=== PATIENT | female | born 1995 | race Caucasian/White ===

== ENCOUNTER 2021-06-07 08:14 | Emergency (ER) | payer OTHER, SELFPAY ==
[2021-06-07 08:20] VITALS: BP 129/78; PULSE 75; RESP 16; TEMP 36.6; O2SAT 100; BMI 24.9
--- NOTE | 2021-06-07 08:28 | ED.ALLEREA ---
HPI - Allergic Reaction General Chief complaint: Allergic Reaction Stated complaint: allergic reaction last night,took benedryl Time Seen by Provider: 06/07/21 08:17 History of Present Illness HPI narrative: 25-year-old female nonsmoker with noncontributory medical history presents for evaluation of possible allergic reaction last night. She states she was in her normal state of health and was eating popcorn when she noticed her upper lip started to feel swollen on the right side. She denies any pain or injury. She has no trouble swallowing. Denies any difficulty breathing or wheezing. She denies any widespread rash or hives. She has had no GI complaints such as nausea, vomiting or diarrhea. She denies any other new medications, foods or other possible exposures. She took 50 mg of Benadryl prior to coming and thinks it is improved. Related Data Previous Rx's Medication Instructions Recorded prednisone 20 mg tablet 20 mg PO DAILY #5 tab 06/07/21 Allergies Allergy/AdvReac Type Severity Reaction Status Date / Time latex [LATEX] Allergy Unknown Unverified 11/15/17 12:16 Review of Systems Review of Systems Narrative: GENERAL: See HPI HEENT: See HPI RESPIRATORY: See HPI CARDIOVASCULAR: Denies chest pain, palpitations, orthopnea, edema, GASTROINTESTINAL: Denies nausea, vomiting, abdominal pain, diarrhea, constipation, melena. : Denies dysuria, frequency, incontinence, hematuria, urinary retention. MUSCULOSKELETAL: denies weakness, joint pain, or bony pain SKIN: See HPI NEUROLOGIC: Denies weakness, headache, numbness, change in speech, confusion, seizures, incoordination. PSYCHIATRIC: No concerning psychosocial issues. 12 point review of systems is negative except for those stated above Exam Narrative Exam Narrative: GENERAL: [25] year old patient appears stated age. Well-developed patient, in mild distress. HEAD: Atraumatic. Normocephalic. EYES: Pupils equal round and reactive. Extraocular motions intact. No scleral icterus. No injection or drainage. ENT: Very minimal right-sided upper lip swelling Nose without bleeding, purulent drainage. Throat without erythema, tonsillar hypertrophy or exudate. Airway patent. NECK: Trachea midline. Non tender CARDIOVASCULAR: Regular rate and rhythm without murmurs, gallops, or rubs. RESPIRATORY: Clear to auscultation. Breath sounds equal bilaterally. No wheezes, rales, or rhonchi. GASTROINTESTINAL: Abdomen soft, non-tender, nondistended. EXTREMITIES: No edema or joint tenderness. BACK: Nontender without deformity or crepitance. No flank tenderness. NEURO: AOx3. SKIN: No rash or erythema of visible areas Initial Vital Signs Initial Vital Signs: Vital Signs Temperature 97.8 F 06/07/21 08:20 Pulse Rate 75 06/07/21 08:20 Respiratory Rate 16 06/07/21 08:20 Blood Pressure 129/78 06/07/21 08:20 Pulse Oximetry 100 06/07/21 08:20 Course Vital Signs Vital signs: Vital Signs - 8 hr 06/07/21 08:20 Temperature 97.8 F Pulse Rate 75 Respiratory Rate 16 Blood Pressure 129/78 Pulse Oximetry 100 MDM - Allergic Reaction MDM Narrative Medical decision making narrative: Patient had is very reassuring history and physical exam, improved, minimal symptoms with no trouble swallowing or breathing. No signs of anaphylaxis. Extensive return precautions given and questions answered to her apparent satisfaction. Discharge Plan Departure Patient Disposition: Home Clinical Impression: Allergic reaction Qualifiers: Encounter type: initial encounter Qualified Code(s): T78.40XA - Allergy, unspecified, initial encounter Activity Restrictions/Additional Instructions: *You have been diagnosed with [mild localized allergic reaction. No signs of anaphylaxis *What to do: * as we discussed, please continue taking antihistamines which are available [id number]. Histamine type 1 blockers include Benadryl (which can make you sleepy and should be used at night) and others such as Argelia and Claritin which are better for taking during the day. Additionally, histamine type 2 geni such as Pepcid and Zantac can be helpful as well. [ x] New medication prescriptions sent to your pharmacy: [[facility]] [ ] New medication written as a paper prescription [ ] No new medications given *Please follow up with your primary care provider in 2-3 days, call for an appointment. Let them know you were seen in the Emergency Department and that we ask that you be seen in follow up. We will electronically transmit a record of today's note if your PCP is in our system *If you do not have a primary care provider please contact the [facility] Resource line at [phone]. They will ask some questions about your medical history and help get you set up with a doctor in the community. *Return to Emergency Department if you should have any new, worsening or concerning symptoms, such as [increased swelling, difficulty swallowing or breathing, or other bothersome symptoms Prescriptions: New prednisone 20 mg tablet 20 mg PO DAILY Qty: 5 RF: 0 Referrals: Jose F Frost DO [Primary Care Provider] -
== END 2021-06-07 08:30 | disposition home or self-care (01) ==
LOC: ED 08:34
PROVIDERS: Emergency Provider Emergency Medicine; PCP Student in an Organized Health Care Education/Training Program
DX: R22.0 Localized swelling, mass and lump, head (principal); T78.40XA Allergy, unspecified, initial encounter
CPT/HCPCS: 99281

== ENCOUNTER 2022-10-26 18:17 | Emergency (ER) | payer OTHER, SELFPAY ==
[2022-10-26] VITALS (8 sets, daily range): BP systolic 118–119; BP diastolic 78–82; PULSE 78–102; RESP 20; TEMP 37.4; O2SAT 97–100; BMI 26.6
[2022-10-26 18:52] LABS: Add Manual Diff / Slide Review NO; Basophils Absolute Auto 0 /uL (0-100); Basophils Percent Auto 0.3 % (0-2); Eosinophils Absolute Auto 200 /uL (0-450); Eosinophils Percent Auto 2.4 % (2-4); Hematocrit 34.3 % (36-46); Lymphocytes Absolute Auto 3100 /uL (1100-4500); Lymphocytes Percent Auto 32.8 % (25-40); Mean Corpuscular HGB Conc 34.9 % (30-36); Mean Corpuscular Hemoglobin 29.2 PG (26-34); Mean Corpuscular Volume 83.7 fL (80-100); Monocytes Absolute Auto 600 /uL (0-900); Neutrophils Absolute Auto 5500 /uL (1500-7000); Neutrophils Percent Auto 58.5 % (50-75); Platelet Count 217 X10^3/uL (150-400); Red Cell Distribution Width 13.4 % (11.6-14.8); White Blood Cell Count 9.3 X10^3/uL (4.5-11.0)
[2022-10-26 19:00] LABS: INR 1.1 (0.9-1.3); Prothrombin Time 12.3 SECONDS (10.1-12.7)
--- NOTE | 2022-10-26 19:02 | ED_ITS ---
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 She had previously been on anticoagulation after developing a lower extremity DVT while on control and that was encouraged to be on preventative dosing of Lovenox while as she is considered to be high risk. She is been taking Lovenox subQ as directed and is a at 14 weeks. She has recent travel from [place] to here about 2 weeks ago. She is high-risk and earlier in this was found to have an open cervix and they had discussed the potential of performing a cerclage but on repeat examination, after bed rest her cervix had closed. She has no fever or chills and denies any shortness of breath but does state that when the pain in her right lateral ribs is present it hurts her to breathe and therefore makes it hard for her to catch her breath. She is had no cough or hemoptysis. She denies any lower extremity pain, swelling or redness. Related Data Previous Rx's Medication Instructions Recorded prednisone 20 mg tablet 20 mg PO DAILY #5 tabs 06/07/21 Allergies Allergy/AdvReac Type Severity Reaction Status Date / Time latex [LATEX] Allergy Unknown Unverified 11/15/17 12:16 Review of Systems Review of Systems Narrative: GENERAL: Denies chills, fatigue, malaise, fever, sweats. HEENT: Denies sinus pain, ear pain, sore throat, difficulty swallowing, dizziness. RESPIRATORY: Denies dyspnea, cough, wheezing, hemoptysis, sputum. CARDIOVASCULAR: See HPI GASTROINTESTINAL: Denies nausea, vomiting, abdominal pain, diarrhea, constipation, melena. : Denies dysuria, frequency, incontinence, hematuria, urinary retention. MUSCULOSKELETAL: denies weakness, joint pain, or bony pain SKIN: Denies rash, skin lesions, or other NEUROLOGIC: Denies weakness, headache, numbness, change in speech, confusion, seizures, incoordination. PSYCHIATRIC: No concerning psychosocial issues. 12 point review of systems is negative except for those stated above Patient History Substance Use Type: does not use Exam Narrative Exam Narrative: GENERAL: [27] year old patient appears stated age. Well-developed patient, in mild distress. HEAD: Atraumatic. Normocephalic. EYES: Pupils equal round and reactive. Extraocular motions intact. No scleral icterus. No injection or drainage. ENT: Nose without bleeding, purulent drainage. Throat without erythema, tonsillar hypertrophy or exudate. Airway patent. NECK: Trachea midline. Non tender CARDIOVASCULAR: Regular rate and rhythm without murmurs, gallops, or rubs. RESPIRATORY: Clear to auscultation. Breath sounds equal bilaterally. No wheezes, rales, or rhonchi. GASTROINTESTINAL: Abdomen soft, severe right upper quadrant pain on palpation with positive Boothe's sign, nondistended. EXTREMITIES: No edema or joint tenderness. BACK: Nontender without deformity or crepitance. No flank tenderness. NEURO: AOx3. SKIN: No rash or erythema of visible areas Initial Vital Signs Initial Vital Signs: Vital Signs Temperature 99.3 F 10/26/22 18:20 Pulse Rate 102 H 10/26/22 18:20 Respiratory Rate 20 10/26/22 18:20 Blood Pressure 119/82 10/26/22 18:20 Pulse Oximetry 100 10/26/22 18:20 Oxygen Delivery Method Room Air 10/26/22 18:20 Course Orders Ordered: ED Orders 10/26/22 18:27 Measure peak expiratory flow ONCE RT Consult Eval and Treat NOW 10/26/22 18:35 COVID19 -Nasal RAPID Stat Complete Blood Count AUTO DIFF Stat Comprehensive Metabolic Panel Stat D Dimer Stat Lactate (Lactic Acid) Stat NT-proBNP (BNP-Adult 18+) Stat Prothrombin Time INR Stat Troponin I Stat 10/26/22 18:56 EKG-12 Lead Stat 10/26/22 19:20 US abdomen limited Stat Vital Signs Vital signs: Vital Signs - 8 hr 10/26/22 18:20 Temperature 99.3 F Pulse Rate 102 H Respiratory Rate 20 Blood Pressure 119/82 Pulse Oximetry 100 Oxygen Delivery Method Room Air Medical Decision Making Lab Data 10/26/22 18:35 10/26/22 18:35 Labs: Lab Results 10/26/22 10/26/22 10/26/22 Range/Units 18:35 18:35 18:35 WBC 9.3 (4.5-11.0) X10^3/uL RBC 4.10 (4.0-5.2) X10^6/uL Hgb 12.0 (12.0-16.0) g/dL Hct 34.3 L (36-46) % MCV 83.7 (80-100) fL MCH 29.2 (26-34) PG MCHC 34.9 (30-36) % RDW 13.4 (11.6-14.8) % Plt Count 217 (150-400) X10^3/uL Neut % (Auto) 58.5 (50-75) % Lymph % (Auto) 32.8 (25-40) % [place] % (Auto) 6.0 (3-14) % Eos % (Auto) 2.4 (2-4) % Baso % (Auto) 0.3 (0-2) % Neut # (Auto) 5500 (7032-3024) /uL Lymph # (Auto) 3100 (3928-9630) /uL [place] # (Auto) 600 (0-900) /uL Eos # (Auto) 200 (0-450) /uL Baso # (Auto) 0 (0-100) /uL PT 12.3 (10.1-12.7) SECONDS INR 1.1 (0.9-1.3) D-Dimer (<500) ng/ml Sodium 136 L (137-145) mmol/L Potassium 3.3 L (3.4-5.1) mmol/L Chloride 102 (98-107) mmol/L Carbon Dioxide 25 (22-32) mmol/L BUN 10 (7-17) mg/dL Creatinine 0.45 L (0.52-1.04) mg/dL Estimated GFR > 60 (>60) mL/min BUN/Creatinine Ratio 22.2 H (6-22) Glucose 81 (70-100) mg/dL Lactate (0.7-2.1) mmol/L Calcium 9.4 (8.4-10.2) mg/dL Total Bilirubin 0.1 L (0.2-1.3) mg/dL AST 29 (14-36) IU/L ALT 28 (<35) IU/L Alkaline Phosphatase 50 (38-126) U/L Troponin I < 0.012 (0.01-0.034) ng/mL NT-Pro-B Natriuret Pep 22 (<125) pg/mL Total Protein 8.1 (6.3-8.2) g/dL Albumin 4.4 (3.5-5.0) g/dL Globulin 3.7 (1.7-4.1) g/dL Albumin/Globulin Ratio 1.2 (1.0-2.8) SARS-CoV-2 (PCR) (Negative) 10/26/22 10/26/22 10/26/22 Range/Units 18:35 18:35 18:35 WBC (4.5-11.0) X10^3/uL RBC (4.0-5.2) X10^6/uL Hgb (12.0-16.0) g/dL Hct (36-46) % MCV (80-100) fL MCH (26-34) PG MCHC (30-36) % RDW (11.6-14.8) % Plt Count (150-400) X10^3/uL Neut % (Auto) (50-75) % Lymph % (Auto) (25-40) % [place] % (Auto) (3-14) % Eos % (Auto) (2-4) % Baso % (Auto) (0-2) % Neut # (Auto) (7381-9245) /uL Lymph # (Auto) (2260-6904) /uL [place] # (Auto) (0-900) /uL Eos # (Auto) (0-450) /uL Baso # (Auto) (0-100) /uL PT (10.1-12.7) SECONDS INR (0.9-1.3) D-Dimer 622 H (<500) ng/ml Sodium (137-145) mmol/L Potassium (3.4-5.1) mmol/L Chloride (98-107) mmol/L Carbon Dioxide (22-32) mmol/L BUN (7-17) mg/dL Creatinine (0.52-1.04) mg/dL Estimated GFR (>60) mL/min BUN/Creatinine Ratio (6-22) Glucose (70-100) mg/dL Lactate 1.0 (0.7-2.1) mmol/L Calcium (8.4-10.2) mg/dL Total Bilirubin (0.2-1.3) mg/dL AST (14-36) IU/L ALT (<35) IU/L Alkaline Phosphatase (38-126) U/L Troponin I (0.01-0.034) ng/mL NT-Pro-B Natriuret Pep (<125) pg/mL Total Protein (6.3-8.2) g/dL Albumin (3.5-5.0) g/dL Globulin (1.7-4.1) g/dL Albumin/Globulin Ratio (1.0-2.8) SARS-CoV-2 (PCR) Negative (Negative) Point of Care Testing Test Results Positive Urine Dip Bedside Urine Glucose Negative Bedside Urine Bilirubin - Negative Bedside Urine Ketone - Negative Urine Specific [place] 1.005 Bedside Urine Occult Blood - Negative Bedside Urine pH 6.5 Bedside Urine Protein - Negative Bedside Urine Urobilinogen - Negative Bedside Urine Nitrite - Negative Bedside Urine Leukocytes - Negative Esterase Point of care testing: Point of Care Testing Test Results Positive Urine Dip Bedside Urine Glucose Negative Bedside Urine Bilirubin - Negative Bedside Urine Ketone - Negative Urine Specific [place] 1.005 Bedside Urine Occult Blood - Negative Bedside Urine pH 6.5 Bedside Urine Protein - Negative Bedside Urine Urobilinogen - Negative Bedside Urine Nitrite - Negative Bedside Urine Leukocytes - Negative Esterase MDM Narrative Medical decision making narrative: CC: 27-year-old female with high-risk on prophylactic Lovenox due to control induced DVT previously Complicating co-morbidities: , prior clot Data collected from: Patient Medical records reviewed: Prior notes reviewed in our EMR Differential considered, but not limited to: PE, gallbladder disease versus other Exam documented above, pertinent findings include: Severe reproducible right upper quadrant pain Lab Test results independently reviewed as above. Pertinent findings: No leuko cytosis or left shift, no signs of anemia, D-dimer 622, below years algorithm cutoff to pursue pulmonary embolism with CT angiogram, slightly low potassium at 3.3, otherwise electrolytes and renal function within normal, LFTs and lactate normal Independently reviewed EKG as above Imaging studies independently reviewed: Abdominal ultrasound without evidence of gallbladder disease Scores Used: Years [facility] Elements: #254: Ultrasound for Patients with Abdominal Pain [x] The patient is and presents with abdominal pain or vaginal bleeding. A trans-abdominal or trans-vaginal ultrasound was performed and the location is documented. [SATISFIES MIPS PERFORMANCE] Re-evaluations: Patient feeling much better even without any specific interventions Discussion: Patient with severe right upper quadrant pain with radiation to the back after eating fatty foods. Thankfully, ultrasound and labs are reassuring regarding gallbladder evaluation, lipase and LFTs are within normal. Pulmonary embolism considered but thought highly unlikely with employment of years algorithm, also with low-dose Lovenox daily. Patient given return precautions and questions answered to her apparent satisfaction Disposition: see below, along with detailed discharge instructions that have been reviewed with patient as well as indications for ED re-evaluation and additional outpatient follow up Discharge Plan Departure Patient Disposition: Home Clinical Impression: Abdominal pain, RUQ Instructions: DI for Abdominal Pain-Adult, DI for Biliary Colic Activity Restrictions/Additional Instructions: *You have been diagnosed with [right upper quadrant abdominal pain] * As we discussed your history and physical exam as well as labs and imaging are very reassuring. There is no evidence of any severe diagnoses that would require a specific or immediate intervention. *What to do: *Please continue to take your regular medications as directed. *Please follow up with your primary care provider in 2-3 days, call for an appointment. Let them know you were seen in the Emergency Department and that we ask that you be seen in follow up. We will electronically transmit a record of today's note if your PCP is in our system *Please consider a clear liquid diet for the next 24-48 hours and then slowly advance to regular as tolerated. Also, try to avoid alcohol, nicotine, caffeine, spicy, acidic or fatty foods as this may worsen your symptoms *If you do not have a primary care provider please contact the [facility] Resource line at [phone]. They will ask some questions about your medical history and help get you set up with a doctor in the community. *Return to Emergency Department if you should have any new, worsening or concerning symptoms, such as [fever greater than 101 F, shaking chills, worsening pain, persistent vomiting or other bothersome symptoms] Prescriptions: No Action prednisone 20 mg tablet 20 mg PO DAILY Qty: 5 0RF Rx Instructions: administer with food or milk Referrals: Jose F Frost DO [Primary Care Provider] - Stand Alone Forms: Patient Portal/API
[2022-10-26 19:05] LABS: Alanine Aminotransferase 28 IU/L (<35); Albumin 4.4 g/dL (3.5-5.0); Albumin Globulin Ratio 1.2 (1.0-2.8); Alkaline Phosphatase 50 U/L (38-126); Aspartate Aminotransferase 29 IU/L (14-36); BUN Creatinine Ratio 22.2 (6-22); Bilirubin Total 0.1 mg/dL (0.2-1.3); Blood Urea Nitrogen 10 mg/dL (7-17); Calcium 9.4 mg/dL (8.4-10.2); Carbon Dioxide 25 mmol/L (22-32); Chloride 102 mmol/L (98-107); Estimated Glomerular Filt Rate > 60 mL/min (>60); Globulin 3.7 g/dL (1.7-4.1); Glucose 81 mg/dL (70-100); HEMOLYSIS < 15 (0-50); Potassium 3.3 mmol/L (3.4-5.1); Sodium 136 mmol/L (137-145); Total Protein 8.1 g/dL (6.3-8.2)
[2022-10-26 19:08] LABS: D Dimer 622 ng/ml (<500)
[2022-10-26 19:17] LABS: NT-proBNP (BNP-Adult 18+) 22 pg/mL (<125); Troponin I < 0.012 ng/mL (0.01-0.034)
[2022-10-26 19:19] LABS: COVID19 -Nasal RAPID Negative (Negative)
--- NOTE | 2022-10-26 19:20 | DI.US.S_ITS ---
PROCEDURE: US ABDOMEN LIMITED INDICATIONS: RUQ PAIN TECHNIQUE: Real-time focused scanning was performed of the abdomen, with image documentation. COMPARISON: None. FINDINGS: The liver demonstrates increased no focal mass lesions. The gallbladder demonstrates no stones, wall thickening, or pericholecystic fluid. No intra or extrahepatic biliary ductal dilatation. Visualized pancreas appears unremarkable sonographically. There is a gravid uterus with a single living intrauterine demonstrating heart rate of 157 beats per minute. IMPRESSION: 1. No evidence of cholelithiasis or cholecystitis. Dictated by: García Chou M.D. on 10/26/2022 at 21:07 Approved by: García Chou M.D. on 10/26/2022 at 21:08
== END 2022-10-26 21:33 | disposition home or self-care (01) ==
PROVIDERS: Emergency Provider Emergency Medicine; PCP Student in an Organized Health Care Education/Training Program
DX: R10.11 Right upper quadrant pain (principal); R07.9 Chest pain, unspecified; Z20.822 Contact with and (suspected) exposure to COVID-19; Z79.01 Long term (current) use of anticoagulants; Z86.718 Personal history of other venous thrombosis and embolism
CPT/HCPCS: 36415; 76705; 80053; 81003; 81025; 83605; 83880; 84484; 85025; 85379; 85610; 87635; 93005; 99284; C9803

== ENCOUNTER → 2024-07-22 09:43 | Outpatient (CLI) | payer OTHER, SELFPAY ==
[2024-07-22 12:44] LABS: Hemoglobin 12.1 g/dL (12.0-16.0)
[2024-07-22 13:19] LABS: GTT (PREG) 1 Hour PP 50gm Dose 99 mg/dL (76-139)
== END ==
LOC: LAB 09:44
PROVIDERS: Referring Provider Obstetrics & Gynecology; Visit Provider Obstetrics & Gynecology
DX: Z34.82 Encounter for supervision of other normal pregnancy, second trimester (principal); Z3A.26 26 weeks gestation of pregnancy
CPT/HCPCS: 36415; 82950; 85014; 85018

== ENCOUNTER 2024-08-02 07:28 | Emergency (ER) | payer OTHER, SELFPAY ==
[2024-08-02] VITALS (11 sets, daily range): BP systolic 104–122; BP diastolic 66–72; PULSE 100–117; RESP 16–24; TEMP 36.6; O2SAT 97–99; BMI 34.7
--- NOTE | 2024-08-02 07:37 | ED_ITS ---
HPI - General Adult General Chief complaint: Shortness of Breath/Dyspnea Stated complaint: 28 weeks has a cold and can't breath Time Seen by Provider: 08/02/24 07:37 History of Present Illness HPI narrative: 29-year-old at 28 weeks gestational age comes in complaining of cough and difficulty breathing. She notes upper respiratory symptoms approximately 2 weeks ago seemingly resolving and then significantly worse with increased cough not particularly productive, low-grade fevers. She has a history of asthma when she was a child however never needed steroids or inhalers as an adult. She is noting active movement with no vaginal discharge or leaking. She does get dyspneic with simply speaking. Patient is on Lovenox for history of DVT and genetic susceptibility homozygous MTHFR. Related Data Home Medications Medication Instructions Recorded Confirmed cholecalciferol (vitamin D3) 125 125 mcg PO DAILY 07/11/24 07/16/24 mcg (5,000 unit) capsule vitamin-ferrous sulfate tab PO 07/11/24 07/16/24 27 mg iron-folic acid 0.8 mg tablet zinc gluconate 30 mg tablet 30 mg PO DAILY 07/11/24 07/16/24 Previous Rx's Medication Instructions Recorded enoxaparin 40 mg/0.4 mL 40 mg (0.4 mL) SUBCUT DAILY #4 mL 07/16/24 subcutaneous syringe amoxicillin 875 mg-potassium 1 tab PO BID #20 tabs 08/02/24 clavulanate 125 mg tablet Allergies Allergy/AdvReac Type Severity Reaction Status Date / Time latex [LATEX] Allergy Intermediate Rash Verified 08/02/24 07:37 sucralose Allergy Mild ITCHING Verified 08/02/24 07:37 [From Splenda (sucralose)] Review of Systems Review of Systems Narrative: Pertinent positive and negative findings as per HPI Patient History Medical History (Updated 08/02/24 @ 09:34 by Luz Maria Thakkar MD) Chest pain Eczema History of deep vein thrombosis (DVT) of lower extremity (~2018) depression IBS (irritable bowel syndrome) Asthma Amado splints Foot pain, right Surgical History (Updated 07/29/24 @ 19:21 by Carmencita Hood) Anesthesia [place] teeth extracted H/O tympanostomy Previous section (~04/19/23) Family History (Updated 07/29/24 @ 19:24 by Carmencita Hood) Father Prinzmetal angina Hypertension Pre-diabetes Hyperlipidemia History of heart disease Grandmother Lupus Stroke Hypertension Grandfather Family estrangement Grandfather Liver cancer Smoker Diabetes mellitus Hypertension Uncle Heart attack Sister Mental health problem Grandmother History of heart disease Hyperlipidemia Hypertension Social History marital status: number of children: 1 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 independently: Yes caregiver/support person: Yes housing: house pets and animals: Yes (dogs, cat; pt doesn't manage litter box) education level: college (associate's degree) occupational status: unemployed current occupational exposures/hazards: No jordon/roman catholic: [employer] special jordon needs: No travel history: recent (domestic only) seatbelt use: always water heater temp set < 120 deg: Yes working smoke detector in home: Yes fire extinguisher in home: Yes carbon monox detector in home: Yes firearms in home: Yes firearms unloaded and locked: Yes do you feel safe at home: Yes Smoking Status: Never smoker second hand exposure: No alcohol intake: former (rarely when not ) substance use type: does not use during the past year weight has: other (close spacing of pregnancies, not back to pre-baby weight at conception) well-balanced diet: daily or most days daily servings fruits/ve or more times/day caffeine: Yes (decaf coffee only) Type(s) of exercise: walking and other (active w/ toddler) Smoking Status: Never smoker Exam Initial Vital Signs Initial Vital Signs: Vital Signs Pulse Rate 109 H 08/02/24 07:32 Pulse Oximetry 97 08/02/24 07:32 General: Gravid, appears uncomfortable, able to speak in 4-5 word sentences, coughing HEENT: Moist mucous membranes, normal sclera with reactive pupils, Respiratory: Lungs with minor scattered wheeze in upper lung kelly, rhonchi in left base and left mid axillary line Cardiac: Tachycardic but otherwise Regular rate and rhythm no murmurs no bruits Abdomen: Soft, gravid, uterus is not tender. She does not have flank pain Skin: Warm and dry, no rashes Neurologic: Grossly neurologically intact with no obvious asymmetries or abnormalities Extremities: No trauma, well perfused Psych: Cooperative, appropriate insight and affect Course Orders Ordered: ED Orders 08/02/24 09:51 Urinalysis and Microscopic Stat Discontinued Medications Albuterol (Albuterol 2.5 Mg/3 Ml Neb (Adult)) 2.5 mg INH NOW ONE Stop: 08/02/24 07:53 Last Admin: 08/02/24 08:30 Dose: 2.5 mg Documented By: ASPEN Sodium Chloride (Normal Saline 0.9%) 1,000 mls @ 1,000 mls/hr IV BOLUS ONE Stop: 08/02/24 08:51 Last Infusion: 08/02/24 09:14 Dose: Infused Documented By: Admin: 08/02/24 08:26 Dose: 1,000 mls/hr Documented By: XIN Ceftriaxone Sodium 2,000 mg/ (Sodium Chloride) 100 mls @ 200 mls/hr IV NOW ONE Stop: 08/02/24 07:53 Last Infusion: 08/02/24 09:14 Dose: Infused Documented By: Admin: 08/02/24 08:33 Dose: 200 mls/hr Documented By: XIN Azithromycin 500 mg/ Dextrose 250 mls @ 250 mls/hr IV NOW ONE Stop: 08/02/24 07:53 Last Infusion: 08/02/24 10:24 Dose: Infused Documented By: Admin: 08/02/24 09:19 Dose: 250 mls/hr Documented By: XIN Vital Signs Vital signs: Vital Signs - 8 hr 08/02/24 07:37 08/02/24 08:30 Temperature 98 F Pulse Rate 115 H 111 H Respiratory Rate 24 16 Blood Pressure 120/72 Pulse Oximetry 97 97 Oxygen Delivery Method Room Air Room Air Medical Decision Making Lab Data 08/02/24 08:14 08/02/24 08:14 Labs: Lab Results 08/02/24 08/02/24 Range/Units 08:14 09:51 WBC 10.7 (4.5-11.0) X10^3/uL RBC 4.10 (4.0-5.2) X10^6/uL Hgb 12.1 (12.0-16.0) g/dL Hct 35.5 L (36-46) % MCV 86.6 (80-100) fL MCH 29.4 (26-34) PG MCHC 33.9 (30-36) % RDW 13.8 (11.6-14.8) % Plt Count 182 (150-400) X10^3/uL Neut % (Auto) 69.5 (50-75) % Lymph % (Auto) 18.2 L (25-40) % [place] % (Auto) 7.9 (3-14) % Eos % (Auto) 4.0 (2-4) % Baso % (Auto) 0.4 (0-2) % Neut # (Auto) 7400 H (7926-3828) /uL Lymph # (Auto) 1900 (9328-5904) /uL [place] # (Auto) 800 (0-900) /uL Eos # (Auto) 400 (0-450) /uL Baso # (Auto) 0 (0-100) /uL D-Dimer 751 H (<500) ng/ml Sodium 132 L (137-145) mmol/L Potassium 3.9 (3.4-5.1) mmol/L Chloride 107 (98-107) mmol/L Carbon Dioxide 18 L (22-32) mmol/L BUN 10 (7-17) mg/dL Creatinine 0.46 L (0.52-1.04) mg/dL Estimated GFR > 60 (>60) mL/min BUN/Creatinine Ratio 21.7 (6-22) Glucose 90 (70-100) mg/dL Calcium 9.2 (8.4-10.2) mg/dL Total Bilirubin 0.3 (0.2-1.3) mg/dL AST 20 (14-36) IU/L ALT 13 (<35) IU/L Alkaline Phosphatase 80 (38-126) U/L Total Protein 7.7 (6.3-8.2) g/dL Albumin 4.1 (3.5-5.0) g/dL Globulin 3.6 (1.7-4.1) g/dL Albumin/Globulin Ratio 1.1 (1.0-2.8) Urine Color Yellow Urine Appearance Clear Urine pH 7.0 (4.5-8.0) Ur Specific [place] <=1.005 (1.000-1.035) Urine Protein Negative (Negative) Urine Glucose (UA) Negative (Negative) g/dL Urine Ketones Negative (NEGATIVE) Urine Occult Blood Negative (Negative) Urine Nitrate Negative (Negative) Urine Bilirubin Negative (NEGATIVE) Urine Urobilinogen 0.2 (0.2) E.U./dL Ur Leukocyte Esterase Negative (NEGATIVE) Urine RBC 0-1/hpf (0-5/HPF) Urine WBC 0-1/hpf (0-5/HPF) Ur Squamous Epith Cells 1-5 /hpf (0-5/HPF) Urine Bacteria Occasional (0-1) (None) Ur Culture Indicated? Cult not indicated Vol Urine Centrifuged 10ml (spun) MDM Narrative Medical decision making narrative: CC: Increasing cough Complicating co-morbidities: Recent upper respiratory infection almost resolved getting worse, 29 weeks Data collected from: patient Medical records reviewed: OB records reviewed Differential considered: Postviral bacterial pneumonia, mild reactive airway disease worse post viral infection, pulmonary embolism Exam documented above, pertinent findings include: Patient appears fatigued, well hydrated, tachycardic, dyspneic with 3-4 word sentences with rhonchi in the left base and mid axillary line consistent with a developing bacterial pneumonia heart tones are appropriate at 140 Lab Test results independently reviewed as above. Pertinent findings: D-dimer is minimally elevated but with an appropriate range for 29 weeks gestational age, PE is felt to be far less likely CBC: White count is not significantly elevated and she is not anemic Chemistries : Mild hyponatremia 132. No renal dysfunction liver studies are Imaging studies independently reviewed: Given her clinical diagnosis of bacterial pneumonia, with shared decision-making we opted to not x-ray her given her Treatments: Fluids, ceftriaxone, azithromycin IV, albuterol Discussion: Otherwise healthy 29 week gravid 29-year-old woman with classic presentation of bacterial pneumonia following a viral infection. Clinically has a left lower lobe pneumonia and with shared decision-making we opted to not expose her to radiation is it has not going to change recommendations for antibiotics. Workup in the ER does not suggest respiratory failure, sepsis or pulmonary embolism. There was no indication for additional imaging studies or hospitalization. Patient is doing well after a L of fluid, she is able to eat drink and oxygen saturations remain in the upper 90s. She is safe for discharge and will follow up with her primary care physician. Augmentin is electronically transmitted for treatment of her pneumonia. Discharge Plan Departure Patient Disposition: Home Clinical Impression: Bacterial pneumonia Instructions: DI for Pneumonia -- Adult Activity Restrictions/Additional Instructions: Thank you for coming in today You have a bacterial pneumonia that has taken advantage of the fact that you had a recent viral upper respiratory infection. Based on your clinical exam you have a left lower lobe pneumonia and do need antibiotics. Based on your blood work I am not seeing signs of sepsis or reasons for hospitalization. We did try an albuterol nebulizer in the emergency department but had minimal effect, I do not think that there was added benefit for an inhaler use at home. I have given you a prescription for Augmentin, you were given ceftriaxone and azithromycin in the emergency department, to treat your left lower lobe pneumonia. A prescription was sent to [facility] in [place]. This is safe with . We did check your baby's heartbeat, it was reassuring in the 140 range. Please keep your next routine OB appointment. If you find that you are getting worse or develop any new symptoms, please feel free to return to the emergency department for further evaluation. Prescriptions: New amoxicillin-pot clavulanate 875-125 mg tablet 1 tab PO BID Qty: 20 0RF No Action vit-ferrous sulfat-FA 27 mg iron- 0.8 mg tablet PO cholecalciferol (vitamin D3) 125 mcg (5,000 unit) capsule 125 mcg PO DAILY zinc gluconate 30 mg tablet 30 mg PO DAILY enoxaparin 40 mg/0.4 mL syringe 40 mg SUBCUT DAILY Qty: 4 3RF Referrals: ProviderHarsha [Primary Care Provider] - Stand Alone Forms: Patient Portal/API/Survey
[2024-08-02] MEDS: SODIUM CHLORIDE 0.9% 1,000 ML 1000 ML IV (08:26)
[2024-08-02 08:30] LABS: Add Manual Diff / Slide Review NO; Basophils Absolute Auto 0 /uL (0-100); Basophils Percent Auto 0.4 % (0-2); Eosinophils Absolute Auto 400 /uL (0-450); Hematocrit 35.5 % (36-46); Hemoglobin 12.1 g/dL (12.0-16.0); Lymphocytes Absolute Auto 1900 /uL (1100-4500); Lymphocytes Percent Auto 18.2 % (25-40); Mean Corpuscular HGB Conc 33.9 % (30-36); Mean Corpuscular Hemoglobin 29.4 PG (26-34); Mean Corpuscular Volume 86.6 fL (80-100); Monocytes Absolute Auto 800 /uL (0-900); Monocytes Percent Auto 7.9 % (3-14); Neutrophils Absolute Auto 7400 /uL (1500-7000); Neutrophils Percent Auto 69.5 % (50-75); Platelet Count 182 X10^3/uL (150-400); Red Cell Distribution Width 13.8 % (11.6-14.8); White Blood Cell Count 10.7 X10^3/uL (4.5-11.0)
[2024-08-02] MEDS: ALBUTEROL 2.5 MG/3 ML NEB (ADULT) INH (08:30)
[2024-08-02] MEDS: cefTRIAXone 2,000 MG in SODIUM CHLORIDE 0.9% 100 ML 200 MG IV (08:33)
[2024-08-02 08:42] LABS: D Dimer 751 ng/ml (<500)
[2024-08-02 08:43] LABS: Alanine Aminotransferase 13 IU/L (<35); Albumin 4.1 g/dL (3.5-5.0); Albumin Globulin Ratio 1.1 (1.0-2.8); Alkaline Phosphatase 80 U/L (38-126); Aspartate Aminotransferase 20 IU/L (14-36); BUN Creatinine Ratio 21.7 (6-22); Bilirubin Total 0.3 mg/dL (0.2-1.3); Blood Urea Nitrogen 10 mg/dL (7-17); Calcium 9.2 mg/dL (8.4-10.2); Carbon Dioxide 18 mmol/L (22-32); Chloride 107 mmol/L (98-107); Estimated Glomerular Filt Rate > 60 mL/min (>60); Globulin 3.6 g/dL (1.7-4.1); Glucose 90 mg/dL (70-100); HEMOLYSIS < 15 (0-50); Potassium 3.9 mmol/L (3.4-5.1); Sodium 132 mmol/L (137-145); Total Protein 7.7 g/dL (6.3-8.2)
[2024-08-02] MEDS: AZITHROMYCIN 500 MG in DEXTROSE 5% IN WATER 250 ML 250 MG IV (09:19)
[2024-08-02 09:59] LABS: Appearance Urine UA CLEAR; Bilirubin Urine UA NEGATIVE (NEGATIVE); Color Urine UA YELLOW; Glucose Urine UA NEGATIVE (Negative); Ketones Urine UA NEGATIVE (NEGATIVE); Leukocyte Esterase Urine UA NEGATIVE (NEGATIVE); Nitrite Urine UA NEGATIVE (Negative); Occult Blood Urine UA NEGATIVE (Negative); Protein Urine UA NEGATIVE (Negative); Specific Gravity Urine UA <=1.005 (1.000-1.035); Urobilinogen Urine UA 0.2 E.U./dL (0.2)
[2024-08-02 10:10] LABS: Bacteria Urine Occasional (0-1); Culture Indicated Urine Cult Not Indicated; RBC Urine 0-1/HPF (0-5/HPF); Squamous Epithelial Cell Urine 1-5 /HPF (0-5/HPF); Urine Volume 10mL (spun); WBC Urine 0-1/HPF (0-5/HPF)
== END 2024-08-02 10:25 | disposition home or self-care (01) ==
PROVIDERS: Emergency Provider Emergency Medicine
DX: O99.513 Diseases of the respiratory system complicating pregnancy, third trimester (principal); J15.9 Unspecified bacterial pneumonia; O99.283 Endocrine, nutritional and metabolic diseases complicating pregnancy, third trimester; E72.12 Methylenetetrahydrofolate reductase deficiency; Z86.718 Personal history of other venous thrombosis and embolism; Z3A.29 29 weeks gestation of pregnancy
CPT/HCPCS: 36415; 80053; 81001; 85025; 85379; 87040; 94640; 96365; 96367; 99284; J0696; J7613

== ENCOUNTER 2024-08-07 15:44 | Outpatient (CLI) | payer OTHER, SELFPAY ==
[2024-08-07 16:09] LABS: Appearance Urine UA CLEAR; Bilirubin Urine UA NEGATIVE (NEGATIVE); Color Urine UA YELLOW; Glucose Urine UA NEGATIVE (Negative); Ketones Urine UA NEGATIVE (NEGATIVE); Leukocyte Esterase Urine UA NEGATIVE (NEGATIVE); Nitrite Urine UA NEGATIVE (Negative); Occult Blood Urine UA NEGATIVE (Negative); Protein Urine UA NEGATIVE (Negative); Urobilinogen Urine UA 0.2 E.U./dL (0.2)
[2024-08-07 16:20] LABS: Bacteria Urine None Seen; Culture Indicated Urine Cult Not Indicated; RBC Urine None Seen (0-5/HPF); Squamous Epithelial Cell Urine None Seen (0-5/HPF); Urine Volume 10mL (spun); WBC Urine None Seen (0-5/HPF)
--- NOTE | 2024-08-07 17:41 | P.TNLD_ITS ---
Visit Information Visit Information Date of evaluation: 08/07/24 Primary OB Provider: Mariel Forrester On-call OB Provider: Hafsa Mcneill Reason for Evaluation: Yes other Comments/Additional reasons for admission: Patient is a 29 year old at 28+5 wks gestation who presents to the Center with c/o bilateral flank pain. No N/V. No fever or chills. Recently treated for pneumonia, is still on Amoxicillin. No contractions. No VB or LOF. Good FM. PFSH Medical History (Updated 08/02/24 @ 09:34 by Luz Maria Thakkar MD) Chest pain Eczema History of deep vein thrombosis (DVT) of lower extremity (~2018) depression IBS (irritable bowel syndrome) Asthma Amado splints Foot pain, right Surgical History (Updated 07/29/24 @ 19:21 by Carmencita Hood) Anesthesia [place] teeth extracted H/O tympanostomy Previous section (~04/19/23) Family History (Updated 07/29/24 @ 19:24 by Carmencita Hood) Father Prinzmetal angina Hypertension Pre-diabetes Hyperlipidemia History of heart disease Grandmother Lupus Stroke Hypertension Grandfather Family estrangement Grandfather Liver cancer Smoker Diabetes mellitus Hypertension Uncle Heart attack Sister Mental health problem Grandmother History of heart disease Hyperlipidemia Hypertension Social History marital status: number of children: 1 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 independently: Yes caregiver/support person: Yes housing: house pets and animals: Yes (dogs, cat; pt doesn't manage litter box) education level: college (associate's degree) occupational status: unemployed current occupational exposures/hazards: No jordon/congregation: Bahai special jordon needs: No travel history: recent (domestic only) seatbelt use: always water heater temp set < 120 deg: Yes working smoke detector in home: Yes fire extinguisher in home: Yes carbon monox detector in home: Yes firearms in home: Yes firearms unloaded and locked: Yes do you feel safe at home: Yes Smoking Status: Never smoker second hand exposure: No alcohol intake: former (rarely when not ) substance use type: does not use during the past year weight has: other (close spacing of pregnancies, not back to pre-baby weight at conception) well-balanced diet: daily or most days daily servings fruits/ve or more times/day caffeine: Yes (decaf coffee only) Type(s) of exercise: walking and other (active w/ toddler) Objective Labs Labs: Laboratory Results - last 24 hr 08/07/24 15:53 Urine Color Yellow Urine Appearance Clear Urine pH 7.0 Ur Specific [place] 1.010 Urine Protein Negative Urine Glucose (UA) Negative Urine Ketones Negative Urine Occult Blood Negative Urine Nitrate Negative Urine Bilirubin Negative Urine Urobilinogen 0.2 Ur Leukocyte Esterase Negative Urine RBC None seen Urine WBC None seen Ur Squamous Epith Cells None seen Urine Bacteria None seen Ur Culture Indicated? Cult not indicated Vol Urine Centrifuged 10ml (spun) Evaluation Evaluation Baseline heart rate: 135 Variability: Moderate (11-25) monitor accelerations: Present Monitor Decelerations: Absent Contraction Frequency (minutes): 0 Category of Tracing: Reactive Diagnosis, Plan/Disposition Plan/Disposition Plan: Assessment: 29 year old at 28+5 wks gest with bilateral flank pain Negative Urine No h/o kidney stones Reactive NST, no contractions Plan: Discharge to home S/S of pyelonephritis reviewed F/U as schedule with Dr. Mitzy Melissa Amoxicillin OB Disposition: home
== END 2024-08-07 16:45 | disposition home or self-care (01) ==
LOC: LABOR 17:05 → OB 08-09 10:13
PROVIDERS: Referring Provider Obstetrics & Gynecology; Visit Provider Obstetrics & Gynecology
DX: O26.893 Other specified pregnancy related conditions, third trimester (principal); R10.9 Unspecified abdominal pain; Z3A.28 28 weeks gestation of pregnancy
CPT/HCPCS: 59025; 81001; G0378; G0379

== ENCOUNTER 2024-08-13 13:05 | Emergency (ER) | payer OTHER, SELFPAY ==
[2024-08-13 13:33] VITALS: BP 129/76; PULSE 102; RESP 20; TEMP 36.4; O2SAT 95; BMI 36.8
--- NOTE | 2024-08-13 15:35 | ED_ITS ---
HPI - Extremity Problem General Chief complaint: Extremity Problem,Nontraumatic Stated complaint: r leg pain, poss dvt, 29wks Time Seen by Provider: 08/13/24 14:45 Source: patient Mode of arrival: Ambulatory History of Present Illness HPI Narrative: Patient here with right leg/calf pain and swelling for the past 3 weeks. No shortness of breath. History of DVT in 2019 while she was on control pills. She is currently . Is on daily Lovenox for preventative treatment. No present DVT. Related Data Home Medications Medication Instructions Recorded Confirmed cholecalciferol (vitamin D3) 125 125 mcg PO DAILY 07/11/24 08/06/24 mcg (5,000 unit) capsule vitamin-ferrous sulfate tab PO 07/11/24 08/06/24 27 mg iron-folic acid 0.8 mg tablet zinc gluconate 30 mg tablet 30 mg PO DAILY 07/11/24 08/06/24 Previous Rx's Medication Instructions Recorded enoxaparin 40 mg/0.4 mL 40 mg (0.4 mL) SUBCUT DAILY #4 mL 07/16/24 subcutaneous syringe Allergies Allergy/AdvReac Type Severity Reaction Status Date / Time latex [LATEX] Allergy Intermediate Rash Verified 08/06/24 08:23 sucralose Allergy Mild ITCHING Verified 08/06/24 08:23 [From Splenda (sucralose)] Review of Systems Review of Systems Narrative: GENERAL: Negative chills, fatigue, malaise, fever, sweats. HEENT: Negative sinus pain, ear pain, sore throat RESPIRATORY: Negative dyspnea, cough CARDIOVASCULAR: Negative chest pain, palpitations GASTROINTESTINAL: Negative nausea, vomiting, abdominal pain : Negative dysuria, frequency, hematuria MUSCULOSKELETAL: Positive muscle or bony pain SKIN: Negative rash, skin lesions NEUROLOGIC: Negative weakness, numbness ROS Unobtainable: All systems reviewed & are unremarkable except as noted in HPI and below Patient History Medical History (Updated 08/13/24 @ 17:59 by Nish Nunez MD) Chest pain Eczema History of deep vein thrombosis (DVT) of lower extremity (~2018) depression IBS (irritable bowel syndrome) Asthma Amado splints Foot pain, right Surgical History (Updated 07/29/24 @ 19:21 by Carmencita Hood) Anesthesia [place] teeth extracted H/O tympanostomy Previous section (~04/19/23) Family History (Updated 07/29/24 @ 19:24 by Carmencita Hood) Father Prinzmetal angina Hypertension Pre-diabetes Hyperlipidemia History of heart disease Grandmother Lupus Stroke Hypertension Grandfather Family estrangement Grandfather Liver cancer Smoker Diabetes mellitus Hypertension Uncle Heart attack Sister Mental health problem Grandmother History of heart disease Hyperlipidemia Hypertension Social History marital status: number of children: 1 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 independently: Yes caregiver/support person: Yes housing: house pets and animals: Yes (dogs, cat; pt doesn't manage litter box) education level: college (associate's degree) occupational status: unemployed current occupational exposures/hazards: No jordon/taoism: [employer] special jordon needs: No travel history: recent (domestic only) seatbelt use: always water heater temp set < 120 deg: Yes working smoke detector in home: Yes fire extinguisher in home: Yes carbon monox detector in home: Yes firearms in home: Yes firearms unloaded and locked: Yes do you feel safe at home: Yes Smoking Status: Never smoker second hand exposure: No alcohol intake: former (rarely when not ) substance use type: does not use during the past year weight has: other (close spacing of pregnancies, not back to pre-baby weight at conception) well-balanced diet: daily or most days daily servings fruits/ve or more times/day caffeine: Yes (decaf coffee only) Type(s) of exercise: walking and other (active w/ toddler) Smoking Status: Never smoker Exam Narrative Exam Narrative: GENERAL: in no distress, not toxic not dyspneic HEAD: Normocephalic. EYES: Pupils equal round ENT: Mucous membranes moist. NECK: Trachea midline. CARDIOVASCULAR: Regular rate and rhythm RESPIRATORY: Clear to auscultation. Breath sounds equal bilaterally. No wheezes, rales, or rhonchi. GASTROINTESTINAL: Abdomen soft, non-tender EXTREMITIES: No gross deformities. Knee to toes exposed. Calves are grossly symmetric. Mild tenderness to mid calf but no palpable cords. Negative Homans test negative Romero test. Feet for soft pink strong pedal pulse brisk cap refills light touch intact to feet and toes. NEURO: AOx4. SKIN: Warm and dry PSYCH: Not anxious, is cooperative Initial Vital Signs Initial Vital Signs: Vital Signs Temperature 97.6 F 08/13/24 13:33 Pulse Rate 102 H 08/13/24 13:33 Respiratory Rate 20 08/13/24 13:33 Blood Pressure 129/76 08/13/24 13:33 Pulse Oximetry 95 08/13/24 13:33 Oxygen Delivery Method Room Air 08/13/24 13:33 Course Orders Ordered: ED Orders 08/13/24 15:35 US perip venous low extrem rt Stat Vital Signs Vital signs: Vital Signs - 8 hr 08/13/24 13:33 Temperature 97.6 F Pulse Rate 102 H Respiratory Rate 20 Blood Pressure 129/76 Pulse Oximetry 95 Oxygen Delivery Method Room Air MDM - Extremity (Nontraumatic) Imaging Data US - DVT: Radiologist's Impression: [address] [address] Ultrasound Report Signed Patient: Himanshu Carlos MR#: [id number] : 1995 Acct:[id number] Age/Sex: 29 / F Date of Service: 08/13/24 Loc: ED Accession Number: [id number] Procedure: US perip venous low extrem rt Ordering Provider: Nish Nunez MD PROCEDURE: PERIP VENOUS LOW EXTREM RT INDICATIONS: Right leg pain and swelling TECHNIQUE: Real-time imaging, as well as color and pulse Doppler interrogation, were performed of the lower extremity deep veins from the inguinal ligament to the popliteal fossa, with documentation of the visualized calf veins. COMPARISON: None. FINDINGS: The common femoral, femoral, popliteal, and the visualized calf veins are normally compressible, and free of intraluminal thrombus. Color and pulse Doppler demonstrate normal phasic intraluminal flow. There is normal augmentation response to distal compression maneuver. IMPRESSION: No findings of lower extremity deep venous thrombosis. Dictated by: Renetta Mai M.D. on 08/13/2024 at 16:27 Approved by: Renetta Mai M.D. on 08/13/2024 at 16:27 [facility] Narrative Medical decision making narrative: Patient here with right leg/calf pain and swelling for the past 3 weeks. No shortness of breath. History of DVT in 2019 while she was on control pills. She is currently . Is on daily Lovenox for preventative treatment. No present DVT. After history and exam ultrasound right leg. No blurry indicated this time. No chest complaints no respiratory complaints. [facility] Medical records reviewed: No recent visit for this complaint Differential considered: Includes but not limited to SVT DVT Lab Test results independently reviewed as above. Pertinent findings: None indicated Imaging studies independently reviewed: Ultrasound right leg no DVT Consultations: None indicated Treatments: None indicated here Re-evaluations: 6:00 p.m.. Updated patient results. They are reassuring. Return precautions reviewed. She will continue Lovenox. Discussion: Appropriate for discharge home exam and imaging reassuring. Return precautions reviewed patient. She desires discharge home. No chest pain no shortness of breath. Diagnosis: Right leg pain Discharge Plan Departure Patient Disposition: Home Clinical Impression: Pain of right calf Instructions: DI for Musculoskeletal Pain Activity Restrictions/Additional Instructions: Your exam and ultrasound are reassuring. No blood clot was seen. Please see family doctor in a week for re-evaluation. May continue your Lovenox injections. Return if worse if any questions or concerns Prescriptions: No Action vit-ferrous sulfat-FA 27 mg iron- 0.8 mg tablet PO cholecalciferol (vitamin D3) 125 mcg (5,000 unit) capsule 125 mcg PO DAILY zinc gluconate 30 mg tablet 30 mg PO DAILY enoxaparin 40 mg/0.4 mL syringe 40 mg SUBCUT DAILY Qty: 4 3RF Referrals: ProviderHarsha [Primary Care Provider] - Stand Alone Forms: Patient Portal/API/Survey
[2024-08-13 18:17] VITALS: BP 125/77; PULSE 100; RESP 20; TEMP 36.4; O2SAT 98
== END 2024-08-13 18:18 | disposition home or self-care (01) ==
PROVIDERS: Emergency Provider Emergency Medicine
DX: O99.891 Other specified diseases and conditions complicating pregnancy (principal); M79.661 Pain in right lower leg; Z3A.29 29 weeks gestation of pregnancy; Z86.718 Personal history of other venous thrombosis and embolism
CPT/HCPCS: 93971; 99281; 99283

== ENCOUNTER 2024-08-17 10:49 | Observation (INO) | payer OTHER, SELFPAY ==
[2024-08-17 11:21] LABS: Appearance Urine UA CLEAR; Bilirubin Urine UA NEGATIVE (NEGATIVE); Color Urine UA YELLOW; Glucose Urine UA NEGATIVE (Negative); Ketones Urine UA NEGATIVE (NEGATIVE); Leukocyte Esterase Urine UA NEGATIVE (NEGATIVE); Nitrite Urine UA NEGATIVE (Negative); Occult Blood Urine UA NEGATIVE (Negative); Protein Urine UA NEGATIVE (Negative); Specific Gravity Urine UA <=1.005 (1.000-1.035); Urobilinogen Urine UA 0.2 E.U./dL (0.2)
[2024-08-17 11:22] LABS: Urine Volume 10mL (spun)
[2024-08-17 11:23] LABS: Bacteria Urine None Seen; Culture Indicated Urine Cult Not Indicated; RBC Urine None Seen (0-5/HPF); Squamous Epithelial Cell Urine 10-30 /HPF (0-5/HPF); WBC Urine None Seen (0-5/HPF)
--- NOTE | 2024-08-17 11:31 | PM.OBTRLD ---
Visit Information Visit Information Date of evaluation: 08/17/24 Primary OB Provider: Mariel Forrester On-call OB Provider: Carmen Elaine Comments/Additional reasons for admission: 29yo at 30w1d here with tachycardia. The pts has been complicated by Lovenox use due to hx of DVT. The pt reports that she was seen at [facility] yesterday and noted to be tachycardic to the 120s. They instructed her to monitor her HR, and if it remained elevated to come in for evaluation this morning. This morning her HR was still in the 120s and so she called and then came in for evaluation. The pt has been having frequent hot sweats and feeling warm, but no documented fevers. She feels is feeling shaky. She has a mild sore throat, no ear pain. She was diagnosed with pneumonia in the ED on 08/02, treated with IV Ceftriaxone/Azithromycin followed by a 10 day course of Amoxicillin. She then returned to the [facility] on 08/13 due to ongoing cough. The pt declined CXR at that time. Her lung were clear and no additional antibiotics were prescribed. She was also evaluated in the ED on 08/13 due to right lower extremity swelling. She had a negative LE u/s for DVT at that time. The pt states that since that time she has continued to have a frequent cough, which seems to be getting worse again. No further LE edema, however. She denies any dysuria, abdominal pain, change in BMs. She has been around a lot of sick people recently, none formally diagnosed. The pt did potentially have an accident with her coffee order yesterday, and may have consumed 3 shots of espresso around 12:30pm instead of her usual decaf order. [facility] Medical History (Updated 08/17/24 @ 13:23 by Carmen Elaine MD) Chest pain Eczema History of deep vein thrombosis (DVT) of lower extremity (~2018) depression IBS (irritable bowel syndrome) Asthma Amado splints Foot pain, right Surgical History (Updated 07/29/24 @ 19:21 by Carmencita Hood) Anesthesia [place] teeth extracted H/O tympanostomy Previous section (~04/19/23) Family History (Updated 07/29/24 @ 19:24 by Carmencita Hood) Father Prinzmetal angina Hypertension Pre-diabetes Hyperlipidemia History of heart disease Grandmother Lupus Stroke Hypertension Grandfather Family estrangement Grandfather Liver cancer Smoker Diabetes mellitus Hypertension Uncle Heart attack Sister Mental health problem Grandmother History of heart disease Hyperlipidemia Hypertension Social History marital status: number of children: 1 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 independently: Yes caregiver/support person: Yes housing: house pets and animals: Yes (dogs, cat; pt doesn't manage litter box) education level: college (associate's degree) occupational status: unemployed current occupational exposures/hazards: No jordon/buddhism: Gnosticist special jordon needs: No travel history: recent (domestic only) seatbelt use: always water heater temp set < 120 deg: Yes working smoke detector in home: Yes fire extinguisher in home: Yes carbon monox detector in home: Yes firearms in home: Yes firearms unloaded and locked: Yes do you feel safe at home: Yes Smoking Status: Never smoker second hand exposure: No alcohol intake: former (rarely when not ) substance use type: does not use during the past year weight has: other (close spacing of pregnancies, not back to pre-baby weight at conception) well-balanced diet: daily or most days daily servings fruits/ve or more times/day caffeine: Yes (decaf coffee only) Type(s) of exercise: walking and other (active w/ toddler) Exam Narrative Exam Narrative: Gen: NAD, sitting comfortably in bed, appears well HEENT: OP with mild erythema, no exudates Neck: mild posterior chain LAD CV: RRR, no murmurs Resp: clear to auscultation bilaterally, no wheezes or crackles Abd: soft, gravid, nontender Ext: no edema Objective Labs 08/17/24 11:20 08/17/24 11:20 Labs: Laboratory Results - last 24 hr 08/17/24 11:00 Urine Color Yellow Urine Appearance Clear Urine pH 6.0 Ur Specific [place] Cbc Base <=1.005 Urine Protein Negative Urine Glucose (UA) Negative Urine Ketones Negative Urine Occult Blood Negative Urine Nitrate Negative Urine Bilirubin Negative Urine Urobilinogen 0.2 Ur Leukocyte Esterase Negative Urine RBC None seen Urine WBC None seen Ur Squamous Epith Cells 10-30 /hpf H D Urine Bacteria None seen Ur Culture Indicated? Cult not indicated Vol Urine Centrifuged 10ml (spun) Evaluation Evaluation Baseline heart rate: 120 Variability: Moderate (11-25) monitor accelerations: Present Monitor Decelerations: Absent Category of Tracing: Reactive Diagnosis, Plan/Disposition Final Diagnosis (1) Viral URI: Status: Acute Plan/Disposition Plan: 29yo at 30w1d here with tachycardia. Pt with hx of blood clot, however low concern today with negative DVT for swelling on 08/13, no significant swelling currently, no acute worsening of SOB, O2 sat in normal range. Lab work with elevated WBC count, however pt does test postive for Coronavirus today. Most likely cause of tachycardia, cough, etc. Lung exam not suggestive or recurrent pneumonia. Stable for d/c home. Discussed supportive care at home, return precautions. Pt and mother expressed understanding. OB Disposition: home
[2024-08-17 11:33] LABS: Add Manual Diff / Slide Review NO; Basophils Absolute Auto 100 /uL (0-100); Basophils Percent Auto 0.5 % (0-2); Eosinophils Absolute Auto 400 /uL (0-450); Eosinophils Percent Auto 2.4 % (2-4); Hematocrit 33.6 % (36-46); Hemoglobin 11.5 g/dL (12.0-16.0); Lymphocytes Absolute Auto 2200 /uL (1100-4500); Lymphocytes Percent Auto 13.6 % (25-40); Mean Corpuscular HGB Conc 34.1 % (30-36); Mean Corpuscular Volume 84.8 fL (80-100); Monocytes Absolute Auto 1100 /uL (0-900); Monocytes Percent Auto 6.9 % (3-14); Neutrophils Absolute Auto 12400 /uL (1500-7000); Neutrophils Percent Auto 76.6 % (50-75); Platelet Count 223 X10^3/uL (150-400); Red Blood Cell Count 3.97 X10^6/uL (4.0-5.2); Red Cell Distribution Width 13.1 % (11.6-14.8); White Blood Cell Count 16.2 X10^3/uL (4.5-11.0)
[2024-08-17 11:49] LABS: Alanine Aminotransferase 14 IU/L (<35); Albumin 3.9 g/dL (3.5-5.0); Albumin Globulin Ratio 1.1 (1.0-2.8); Alkaline Phosphatase 83 U/L (38-126); Aspartate Aminotransferase 16 IU/L (14-36); BUN Creatinine Ratio 14.3 (6-22); Bilirubin Total 0.3 mg/dL (0.2-1.3); Blood Urea Nitrogen 8 mg/dL (7-17); Calcium 9.7 mg/dL (8.4-10.2); Carbon Dioxide 22 mmol/L (22-32); Chloride 106 mmol/L (98-107); Estimated Glomerular Filt Rate > 60 mL/min (>60); Globulin 3.7 g/dL (1.7-4.1); Glucose 90 mg/dL (70-100); HEMOLYSIS < 15 (0-50); Potassium 3.9 mmol/L (3.4-5.1); Sodium 132 mmol/L (137-145); Total Protein 7.6 g/dL (6.3-8.2)
[2024-08-17] MEDS: ACETAMINOPHEN 325 MG TABLET 975 MG PO (12:36)
[2024-08-17 13:17] LABS: Adenovirus Not Detected (Not Detect); B. parapertussis Not Detected (Not Detecte); Bordetella pertussis Not Detected (Not Detect); Chlamydophila pneumoniae Not Detected (Not Detect); Coronavirus 229E Detected (Not Detect); Coronavirus HKU1 Not Detected (Not Detect); Coronavirus NL 63 Not Detected (Not Detect); Coronavirus OC43 Not Detected (Not Detect); Human Metapneumovirus Not Detected (Not Detect); Human Rhinovirus/Enterovirus Not Detected (Not Detect); Influenza A Not Detected (Not Detect); Influenza B Not Detected (Not Detect); Mycoplasma pneumoniae Not Detected (Not Detect); Parainfluenza Virus 1 Not Detected (Not Detect); Parainfluenza Virus 2 Not Detected (Not Detect); Parainfluenza Virus 3 Not Detected (Not Detect); Parainfluenza Virus 4 Not Detected (Not Detect); Respiratory Syncytial Virus Not Detected (Not Detect); SARS- CoV-2 Not Detected (Not Detecte)
== END 2024-08-17 13:26 | disposition home or self-care (01) ==
PROVIDERS: Admitting Provider Family Medicine; Referring Provider Family Medicine; Visit Provider Family Medicine
DX: O99.891 Other specified diseases and conditions complicating pregnancy (principal); O99.513 Diseases of the respiratory system complicating pregnancy, third trimester; R00.0 Tachycardia, unspecified; J06.9 Acute upper respiratory infection, unspecified; Z3A.30 30 weeks gestation of pregnancy
CPT/HCPCS: 36415; 59025; 80053; 81001; 85025; 87633; G0378; G0379

== ENCOUNTER 2024-09-17 12:54 | Outpatient (CLI) | payer OTHER, SELFPAY ==
--- NOTE | 2024-09-17 13:53 | P.TNLD_ITS ---
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 [facility] Medical History (Updated 08/17/24 @ 13:23 by Carmen Elaine MD) Chest pain Eczema History of deep vein thrombosis (DVT) of lower extremity (~2018) depression IBS (irritable bowel syndrome) Asthma Amado splints Foot pain, right Surgical History (Updated 07/29/24 @ 19:21 by Carmencita Hood) Anesthesia [place] teeth extracted H/O tympanostomy Previous section (~04/19/23) Family History (Updated 07/29/24 @ 19:24 by Carmencita Hood) Father Prinzmetal angina Hypertension Pre-diabetes Hyperlipidemia History of heart disease Grandmother Lupus Stroke Hypertension Grandfather Family estrangement Grandfather Liver cancer Smoker Diabetes mellitus Hypertension Uncle Heart attack Sister Mental health problem Grandmother History of heart disease Hyperlipidemia Hypertension Social History marital status: number of children: 1 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 independently: Yes caregiver/support person: Yes housing: house pets and animals: Yes (dogs, cat; pt doesn't manage litter box) education level: college (associate's degree) occupational status: unemployed current occupational exposures/hazards: No jordon/latter day: [employer] special jordon needs: No travel history: recent (domestic only) seatbelt use: always water heater temp set < 120 deg: Yes working smoke detector in home: Yes fire extinguisher in home: Yes carbon monox detector in home: Yes firearms in home: Yes firearms unloaded and locked: Yes do you feel safe at home: Yes Smoking Status: Never smoker second hand exposure: No alcohol intake: former (rarely when not ) substance use type: does not use during the past year weight has: other (close spacing of pregnancies, not back to pre-baby weight at conception) well-balanced diet: daily or most days daily servings fruits/ve or more times/day caffeine: Yes (decaf coffee only) Type(s) of exercise: walking and other (active w/ toddler) Evaluation Evaluation Baseline heart rate: 135 Variability: Moderate (11-25) monitor accelerations: Present Monitor Decelerations: Absent Category of Tracing: Reactive Status: Category l Diagnosis, Plan/Disposition Plan/Disposition Plan: reactive NST routine precautions, f/u as scheduled OB Disposition: home
== END 2024-09-17 13:55 | disposition home or self-care (01) ==
LOC: LABOR 13:56 → OB 09-18 06:33
PROVIDERS: Referring Provider Obstetrics & Gynecology; Visit Provider Obstetrics & Gynecology
DX: O99.113 Other diseases of the blood and blood-forming organs and certain disorders involving the immune mechanism complicating pregnancy, third trimester (principal); Z3A.34 34 weeks gestation of pregnancy
CPT/HCPCS: 59025; G0378; G0379

== ENCOUNTER 2024-09-24 10:01 | Outpatient (CLI) | payer OTHER, SELFPAY | END 2024-09-24 10:55 | disposition home or self-care (01) | LOC: LABOR 10:51 → OB 14:21 | PROVIDERS: Referring Provider Obstetrics & Gynecology; Visit Provider Obstetrics & Gynecology | DX: O47.9 False labor, unspecified (principal); Z3A.35 35 weeks gestation of pregnancy; Z86.718 Personal history of other venous thrombosis and embolism | CPT/HCPCS: 59025; 76815; G0378; G0379 ==

== ENCOUNTER → 2024-09-24 10:55 | Outpatient (CLI) | payer OTHER, SELFPAY ==
--- NOTE | 2024-09-24 10:56 | DI.US.S_ITS ---
PROCEDURE: US PERIPH VENOUS LOW EXTREM LT INDICATIONS: , history of DVT, left calf pain x2 days TECHNIQUE: Real-time imaging, as well as color and pulse Doppler interrogation, were performed of the lower extremity deep veins from the inguinal ligament to the popliteal fossa, with documentation of the visualized calf veins. COMPARISON: None. FINDINGS: The common femoral, femoral, popliteal, and the visualized calf veins are normally compressible, and free of intraluminal thrombus. Color and pulse Doppler demonstrate normal phasic intraluminal flow. There is normal augmentation response to distal compression maneuver. IMPRESSION: No findings of lower extremity deep venous thrombosis. Dictated by: Kushal Linder M.D. on 09/24/2024 at 11:40 Approved by: Kushal Linder M.D. on 09/24/2024 at 11:42
== END ==
PROVIDERS: Referring Provider Obstetrics & Gynecology; Visit Provider Obstetrics & Gynecology
DX: M79.662 Pain in left lower leg (principal); O99.891 Other specified diseases and conditions complicating pregnancy; Z86.718 Personal history of other venous thrombosis and embolism
CPT/HCPCS: 59025; 76815; 93971

== ENCOUNTER 2024-10-01 09:55 | Outpatient (CLI) | payer OTHER, SELFPAY ==
--- NOTE | 2024-10-01 10:45 | PM.OBTRLD ---
Visit Information Visit Information Date of evaluation: 10/01/24 On-call OB Provider: Ping Fisher Reason for Evaluation: Yes non-stress test Vital Signs Vital Signs: Vitals reviewed in obix, within normal [facility] Medical History (Updated 09/24/24 @ 13:08 by Narinder Simmons MD) Chest pain Eczema History of deep vein thrombosis (DVT) of lower extremity (~2018) depression IBS (irritable bowel syndrome) Asthma Amado splints Foot pain, right Surgical History (Updated 07/29/24 @ 19:21 by Carmencita Hood) Anesthesia [place] teeth extracted H/O tympanostomy Previous section (~04/19/23) Family History (Updated 07/29/24 @ 19:24 by Carmencita Hood) Father Prinzmetal angina Hypertension Pre-diabetes Hyperlipidemia History of heart disease Grandmother Lupus Stroke Hypertension Grandfather Family estrangement Grandfather Liver cancer Smoker Diabetes mellitus Hypertension Uncle Heart attack Sister Mental health problem Grandmother History of heart disease Hyperlipidemia Hypertension Social History marital status: number of children: 1 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 independently: Yes caregiver/support person: Yes housing: house pets and animals: Yes (dogs, cat; pt doesn't manage litter box) education level: college (associate's degree) occupational status: unemployed current occupational exposures/hazards: No jordon/pentecostalism: Zoroastrian special jordon needs: No travel history: recent (domestic only) seatbelt use: always water heater temp set < 120 deg: Yes working smoke detector in home: Yes fire extinguisher in home: Yes carbon monox detector in home: Yes firearms in home: Yes firearms unloaded and locked: Yes do you feel safe at home: Yes Smoking Status: Never smoker second hand exposure: No alcohol intake: former (rarely when not ) substance use type: does not use during the past year weight has: other (close spacing of pregnancies, not back to pre-baby weight at conception) well-balanced diet: daily or most days daily servings fruits/ve or more times/day caffeine: Yes (decaf coffee only) Type(s) of exercise: walking and other (active w/ toddler) Evaluation Evaluation Baseline heart rate: 130 Variability: Moderate (11-25) monitor accelerations: Present Monitor Decelerations: Absent Category of Tracing: Reactive Diagnosis, Plan/Disposition Final Diagnosis (1) Supervision of other high risk pregnancies, unspecified trimester: Status: Acute Plan/Disposition OB Disposition: home
== END 2024-10-01 10:45 | disposition home or self-care (01) ==
LOC: LABOR 10:14 → OB 10-02 06:39
PROVIDERS: Referring Provider Student in an Organized Health Care Education/Training Program; Visit Provider Student in an Organized Health Care Education/Training Program
DX: O09.93 Supervision of high risk pregnancy, unspecified, third trimester (principal); O34.219 Maternal care for unspecified type scar from previous cesarean delivery; Z3A.36 36 weeks gestation of pregnancy
CPT/HCPCS: 59025; G0378; G0379

== ENCOUNTER 2024-10-08 13:59 | Outpatient (CLI) | payer OTHER, SELFPAY ==
--- NOTE | 2024-10-08 14:58 | PM.OBTRLD ---
Visit Information Visit Information Date of evaluation: 10/08/24 Primary OB Provider: Mariel Forrester On-call OB Provider: Ping Fisher Reason for Evaluation: Yes non-stress test Comments/Additional reasons for admission: maternal thrombophilia Vital Signs Vital Signs: reviewed in OBIX, wnl [facility] Medical History (Updated 09/24/24 @ 13:08 by Narinder Simmons MD) Chest pain Eczema History of deep vein thrombosis (DVT) of lower extremity (~2018) depression IBS (irritable bowel syndrome) Asthma Amado splints Foot pain, right Surgical History (Updated 07/29/24 @ 19:21 by Carmencita Hood) Anesthesia [place] teeth extracted H/O tympanostomy Previous section (~04/19/23) Family History (Updated 07/29/24 @ 19:24 by Carmencita Hood) Father Prinzmetal angina Hypertension Pre-diabetes Hyperlipidemia History of heart disease Grandmother Lupus Stroke Hypertension Grandfather Family estrangement Grandfather Liver cancer Smoker Diabetes mellitus Hypertension Uncle Heart attack Sister Mental health problem Grandmother History of heart disease Hyperlipidemia Hypertension Social History marital status: number of children: 1 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 independently: Yes caregiver/support person: Yes housing: house pets and animals: Yes (dogs, cat; pt doesn't manage litter box) education level: college (associate's degree) occupational status: unemployed current occupational exposures/hazards: No jordon/lutheran: Sabianism special jordon needs: No travel history: recent (domestic only) seatbelt use: always water heater temp set < 120 deg: Yes working smoke detector in home: Yes fire extinguisher in home: Yes carbon monox detector in home: Yes firearms in home: Yes firearms unloaded and locked: Yes do you feel safe at home: Yes Smoking Status: Never smoker second hand exposure: No alcohol intake: former (rarely when not ) substance use type: does not use during the past year weight has: other (close spacing of pregnancies, not back to pre-baby weight at conception) well-balanced diet: daily or most days daily servings fruits/ve or more times/day caffeine: Yes (decaf coffee only) Type(s) of exercise: walking and other (active w/ toddler) Evaluation Evaluation Baseline heart rate: 140 Variability: Moderate (11-25) monitor accelerations: Present Monitor Decelerations: Absent Category of Tracing: Reactive Status: Category l Diagnosis, Plan/Disposition Plan/Disposition OB Disposition: home
== END 2024-10-08 14:58 | disposition home or self-care (01) ==
LOC: LABOR 14:33 → OB 10-09 12:13
PROVIDERS: Referring Provider Obstetrics & Gynecology; Visit Provider Obstetrics & Gynecology
DX: O99.113 Other diseases of the blood and blood-forming organs and certain disorders involving the immune mechanism complicating pregnancy, third trimester (principal); D68.59 Other primary thrombophilia; Z3A.37 37 weeks gestation of pregnancy
CPT/HCPCS: 59025; G0378; G0379

== ENCOUNTER 2024-10-15 11:00 | Outpatient (CLI) | payer OTHER, SELFPAY ==
--- NOTE | 2024-10-15 11:34 | PM.OBTRLD ---
Visit Information Visit Information Date of evaluation: 10/15/24 Primary OB Provider: Mariel Forrester On-call OB Provider: Ping Fisher Reason for Evaluation: Yes non-stress test Comments/Additional reasons for admission: maternal thrombophilia on prophy BID heparin Vital Signs Vital Signs: reviewed in OBIX, wnl COUNTS INCLUDE [facility] BEDS AT [facility] Medical History (Updated 09/24/24 @ 13:08 by Narinder Simmons MD) Chest pain Eczema History of deep vein thrombosis (DVT) of lower extremity (~2018) depression IBS (irritable bowel syndrome) Asthma Amado splints Foot pain, right Surgical History (Updated 07/29/24 @ 19:21 by Carmencita Hood) Anesthesia [place] teeth extracted H/O tympanostomy Previous section (~04/19/23) Family History (Updated 07/29/24 @ 19:24 by Carmencita Hood) Father Prinzmetal angina Hypertension Pre-diabetes Hyperlipidemia History of heart disease Grandmother Lupus Stroke Hypertension Grandfather Family estrangement Grandfather Liver cancer Smoker Diabetes mellitus Hypertension Uncle Heart attack Sister Mental health problem Grandmother History of heart disease Hyperlipidemia Hypertension Social History marital status: number of children: 1 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 independently: Yes caregiver/support person: Yes housing: house pets and animals: Yes (dogs, cat; pt doesn't manage litter box) education level: college (associate's degree) occupational status: unemployed current occupational exposures/hazards: No jordon/islam: Samaritan special jordon needs: No travel history: recent (domestic only) seatbelt use: always water heater temp set < 120 deg: Yes working smoke detector in home: Yes fire extinguisher in home: Yes carbon monox detector in home: Yes firearms in home: Yes firearms unloaded and locked: Yes do you feel safe at home: Yes Smoking Status: Never smoker second hand exposure: No alcohol intake: former (rarely when not ) substance use type: does not use during the past year weight has: other (close spacing of pregnancies, not back to pre-baby weight at conception) well-balanced diet: daily or most days daily servings fruits/ve or more times/day caffeine: Yes (decaf coffee only) Type(s) of exercise: walking and other (active w/ toddler) Evaluation Evaluation Baseline heart rate: 140 Variability: Moderate (11-25) monitor accelerations: Present Monitor Decelerations: Absent Uterine Contraction Intensity: Mild Category of Tracing: Reactive Status: Category l Diagnosis, Plan/Disposition Plan/Disposition Plan: planned IOL at for TOLAC, pt to notify if additional interval testing indicated prior routine precautions OB Disposition: home
== END 2024-10-15 11:38 | disposition home or self-care (01) ==
LOC: LABOR 11:19 → OB 13:55
PROVIDERS: Referring Provider Obstetrics & Gynecology; Visit Provider Obstetrics & Gynecology
DX: O99.113 Other diseases of the blood and blood-forming organs and certain disorders involving the immune mechanism complicating pregnancy, third trimester (principal); O34.219 Maternal care for unspecified type scar from previous cesarean delivery; D68.59 Other primary thrombophilia; Z3A.38 38 weeks gestation of pregnancy
CPT/HCPCS: 59025; G0378; G0379

== ENCOUNTER → 2024-10-29 13:35 | Outpatient (CLI) | payer OTHER, SELFPAY ==
--- NOTE | 2024-10-29 13:36 | DI.US.S_ITS ---
PROCEDURE: US PERIP VENOUS LOW EXTREM RT INDICATIONS: EDEMA 5 DAYS POST TECHNIQUE: Real-time imaging, as well as color and pulse Doppler interrogation, were performed of the lower extremity deep veins from the inguinal ligament to the popliteal fossa, with documentation of the visualized calf veins. COMPARISON: [facility], PERIP VENOUS LOW EXTREM RT, 08/13/2024, 15:40. FINDINGS: The common femoral, femoral, popliteal, and the visualized calf veins are normally compressible, and free of intraluminal thrombus. Color and pulse Doppler demonstrate normal phasic intraluminal flow. There is normal augmentation response to distal compression maneuver. IMPRESSION: No findings of lower extremity deep venous thrombosis. Dictated by: Antonio Caldwell M.D. on 10/29/2024 at 14:22 Approved by: Antonio Caldwell M.D. on 10/29/2024 at 14:22
== END ==
PROVIDERS: Referring Provider Obstetrics & Gynecology; Visit Provider Obstetrics & Gynecology
DX: M79.604 Pain in right leg (principal); M79.89 Other specified soft tissue disorders; Z86.718 Personal history of other venous thrombosis and embolism
CPT/HCPCS: 93971

== ENCOUNTER 2024-10-29 19:46 | Emergency (ER) | payer OTHER, SELFPAY ==
[2024-10-29] VITALS (7 sets, daily range): BP systolic 94–146; BP diastolic 55–93; PULSE 102–111; RESP 17–23; TEMP 36.3; O2SAT 97–99; BMI 39.1
[2024-10-29 20:22] LABS: Appearance Urine UA SL CLOUDY; Bilirubin Urine UA NEGATIVE (NEGATIVE); Color Urine UA YELLOW; Glucose Urine UA NEGATIVE (Negative); Ketones Urine UA NEGATIVE (NEGATIVE); Leukocyte Esterase Urine UA 3+ (NEGATIVE); Nitrite Urine UA NEGATIVE (Negative); Occult Blood Urine UA 3+ (Negative); Protein Urine UA TRACE (Negative); Urobilinogen Urine UA 0.2 E.U./dL (0.2)
[2024-10-29 20:23] LABS: pH Urine UA 6.5 (4.5-8.0)
[2024-10-29 20:28] LABS: Bacteria Urine Few (2-10); RBC Urine 1-5/HPF (0-5/HPF); Squamous Epithelial Cell Urine 0-1 /HPF (0-5/HPF); Urine Volume 10mL (spun); WBC Urine 10-30/HPF (0-5/HPF)
[2024-10-29 20:29] LABS: Culture Indicated Urine Specimen Cultured; Mucus Urine 1+ (Negative)
[2024-10-29 20:50] LABS: Add Manual Diff / Slide Review NO; Basophils Absolute Auto 0 /uL (0-100); Basophils Percent Auto 0.3 % (0-2); Eosinophils Absolute Auto 700 /uL (0-450); Eosinophils Percent Auto 7.5 % (2-4); Hematocrit 35.2 % (36-46); Hemoglobin 11.8 g/dL (12.0-16.0); Lymphocytes Absolute Auto 2700 /uL (1100-4500); Lymphocytes Percent Auto 27.6 % (25-40); Mean Corpuscular HGB Conc 33.5 % (30-36); Mean Corpuscular Hemoglobin 28.3 PG (26-34); Mean Corpuscular Volume 84.6 fL (80-100); Monocytes Absolute Auto 400 /uL (0-900); Monocytes Percent Auto 4.6 % (3-14); Neutrophils Absolute Auto 5900 /uL (1500-7000); Platelet Count 276 X10^3/uL (150-400); Red Blood Cell Count 4.17 X10^6/uL (4.0-5.2); Red Cell Distribution Width 14.7 % (11.6-14.8); White Blood Cell Count 9.9 X10^3/uL (4.5-11.0)
--- NOTE | 2024-10-29 20:52 | PC.NURSE ---
Patient with recent delivery 5 days ago with no complications including preeclampsia with onset of bilateral lower extremity swelling 2 days ago with RLQ pain. Hx of DVT in 2019 on lovenox.
[2024-10-29 21:03] LABS: Alanine Aminotransferase 26 IU/L (<35); Albumin 4.1 g/dL (3.5-5.0); Albumin Globulin Ratio 1.1 (1.0-2.8); Alkaline Phosphatase 106 U/L (38-126); Aspartate Aminotransferase 30 IU/L (14-36); BUN Creatinine Ratio 21.8 (6-22); Bilirubin Total 0.2 mg/dL (0.2-1.3); Blood Urea Nitrogen 19 mg/dL (7-17); Calcium 9.3 mg/dL (8.4-10.2); Carbon Dioxide 21 mmol/L (22-32); Chloride 106 mmol/L (98-107); Estimated Glomerular Filt Rate > 60 mL/min (>60); Globulin 3.8 g/dL (1.7-4.1); Glucose 82 mg/dL (70-100); HEMOLYSIS < 15 (0-50); Magnesium 2.1 mg/dL (1.6-2.3); Potassium 4.1 mmol/L (3.4-5.1); Sodium 140 mmol/L (137-145); Total Protein 7.9 g/dL (6.3-8.2)
--- NOTE | 2024-10-29 21:52 | ED_ITS ---
HPI - General Chief complaint: OB/Uterine Contractions Stated complaint: 5 days edema legs, blurry vision etc Time Seen by Provider: 10/29/24 20:55 Source: patient Mode of arrival: Ambulatory History of Present Illness HPI Narrative: Patient is a female with a history of recent childbirth five days ago who presents with multiple complaints. She was tachycardic (HR 125) upon discharge from the hospital. Over the weekend, she developed pain and significant swelling in both legs, more pronounced in the right leg, and swelling in her hands. She also reports persistent numbness in her hands, which was present during but has not resolved . Additionally, she experienced severe right lower abdominal pain, which led to an ED visit where a CT scan suggested the need for a bowel movement, and a small kidney stone was noted. She has a history of a blood clot in 2019 and is currently on Lovenox 40 mg, with no missed doses since resuming . An ultrasound of the right lower extremity was negative for clots. She also reports headaches and blurry vision since giving , which she experienced with her previous as well. She was given oxycodone for pain, which worsened her vision issues. She has not taken Tylenol or Ibuprofen recently. Medications: Lovenox 40 mg, Oxycodone (recently given), previously taking Tylenol and Motrin. Past Medical History: Blood clot in 2019, gallbladder issues during a previous . Surgical History: Recent childbirth. Related Data Home Medications Medication Instructions Recorded Confirmed cholecalciferol (vitamin D3) 125 125 mcg PO DAILY 07/11/24 10/08/24 mcg (5,000 unit) capsule vitamin-ferrous sulfate tab PO 07/11/24 10/08/24 27 mg iron-folic acid 0.8 mg tablet zinc gluconate 30 mg tablet 30 mg PO DAILY 07/11/24 10/08/24 Previous Rx's Medication Instructions Recorded alcohol swabs #100 ea 09/24/24 heparin (porcine) 10,000 unit/mL 10,000 unit SUBCUT Q12H #25 mL 09/24/24 injection solution insulin syringe,safety needle 1 mL #100 ea 09/24/24 31 gauge x 15/64 (BD SafetyGlide Insulin Syringe) enoxaparin 40 mg/0.4 mL 40 mg (0.4 mL) SUBCUT DAILY #4 mL 09/25/24 subcutaneous syringe cephalexin 500 mg capsule 500 mg PO BID 7 days #14 caps 10/29/24 Allergies Allergy/AdvReac Type Severity Reaction Status Date / Time latex [LATEX] Allergy Intermediate Rash Verified 10/29/24 20:03 sucralose Allergy Mild ITCHING Verified 10/29/24 20:03 [From Funmi (sucralose)] Exam Narrative Exam Narrative: General: Alert, in mild distress. Skin: Good turgor, no rash, unusual bruising or prominent lesions. Head: Normocephalic, atraumatic. HEENT: Conjunctiva clear, EOM intact, PERRL, Mucous membranes moist. Neck: Supple, normal ROM. Heart: Regular rate and rhythm, no murmur or gallop or rubs. Lungs: Clear to auscultation. No rales, rhonchi, or wheezes. Abdomen: Tenderness in the right lower quadrant. Back: Spine normal without deformity or tenderness, no CVA tenderness. Extremities: Significant swelling in both legs, more pronounced in the right leg. No deformities, edema. Peripheral pulses intact. Neurologic: Reports headaches and blurry vision. CN 2-12 normal. Normal sensation and motor exam. Psychiatric: Oriented X3. Normal mood and affect. Initial Vital Signs Initial Vital Signs: Vital Signs Temperature 97.3 F L 10/29/24 20:03 Pulse Rate 111 H 10/29/24 20:03 Respiratory Rate 17 10/29/24 20:03 Blood Pressure 146/93 H 10/29/24 20:03 Pulse Oximetry 97 10/29/24 20:03 Oxygen Delivery Method Room Air 10/29/24 20:03 Course Orders Ordered: ED Orders 10/29/24 20:10 Urinalysis and Microscopic Stat Urine Culture Stat 10/29/24 20:43 BNP [NT-proBNP (BNP-Adult 18+)] Stat Complete Blood Count AUTO DIFF Stat Comprehensive Metabolic Panel Stat Magnesium Stat 10/29/24 21:56 EKG-12 Lead Stat Discontinued Medications Acetaminophen (Acetaminophen 325 Mg Tablet) 650 mg PO NOW ONE Stop: 10/29/24 21:56 Last Admin: 10/29/24 22:02 Dose: 650 mg Documented By: KIMBERLY Vital Signs Vital signs: Vital Signs - 8 hr 10/29/24 20:03 10/29/24 21:31 10/29/24 21:44 Temperature 97.3 F L Pulse Rate 111 H 104 H 105 H Respiratory Rate 17 17 21 Blood Pressure 146/93 H 119/74 Pulse Oximetry 97 98 98 Oxygen Delivery Method Room Air 10/29/24 22:00 10/29/24 22:00 10/29/24 22:30 Temperature Pulse Rate 103 H Respiratory Rate 23 Blood Pressure 127/75 119/74 Pulse Oximetry 99 Oxygen Delivery Method Room Air 10/29/24 22:30 10/29/24 23:41 10/29/24 23:42 Temperature Pulse Rate 107 H 102 H Respiratory Rate 20 Blood Pressure 94/55 L Pulse Oximetry 98 98 Oxygen Delivery Method 10/29/24 23:42 Temperature Pulse Rate 105 H Respiratory Rate 19 Blood Pressure Pulse Oximetry 98 Oxygen Delivery Method Room Air MDM - OB/Uterine Contractions Lab Data Lab results narrative: Patient's lab work largely reassuring no significant leukocytosis hemoglobin within threshold of normal, no significant thrombocytopenia, liver enzymes within normal limits kidney function within normal limits, patient's urine appears to show signs of infection. 10/29/24 20:43 10/29/24 20:43 Labs: Lab Results 10/29/24 10/29/24 Range/Units 20:10 20:43 WBC 9.9 (4.5-11.0) X10^3/uL RBC 4.17 (4.0-5.2) X10^6/uL Hgb 11.8 L (12.0-16.0) g/dL Hct 35.2 L (36-46) % MCV 84.6 (80-100) fL MCH 28.3 (26-34) PG MCHC 33.5 (30-36) % RDW 14.7 (11.6-14.8) % Plt Count 276 (150-400) X10^3/uL Neut % (Auto) 60.0 (50-75) % Lymph % (Auto) 27.6 (25-40) % [place] % (Auto) 4.6 (3-14) % Eos % (Auto) 7.5 H (2-4) % Baso % (Auto) 0.3 (0-2) % Neut # (Auto) 5900 (6754-0507) /uL Lymph # (Auto) 2700 (2678-9355) /uL [place] # (Auto) 400 (0-900) /uL Eos # (Auto) 700 H (0-450) /uL Baso # (Auto) 0 (0-100) /uL Sodium 140 (137-145) mmol/L Potassium 4.1 (3.4-5.1) mmol/L Chloride 106 (98-107) mmol/L Carbon Dioxide 21 L (22-32) mmol/L BUN 19 H (7-17) mg/dL Creatinine 0.87 (0.52-1.04) mg/dL Estimated GFR > 60 (>60) mL/min BUN/Creatinine Ratio 21.8 (6-22) Glucose 82 (70-100) mg/dL Calcium 9.3 (8.4-10.2) mg/dL Magnesium 2.1 (1.6-2.3) mg/dL Total Bilirubin 0.2 (0.2-1.3) mg/dL AST 30 (14-36) IU/L ALT 26 (<35) IU/L Alkaline Phosphatase 106 (38-126) U/L NT-Pro-B Natriuret Pep 238 H (<125) pg/mL Total Protein 7.9 (6.3-8.2) g/dL Albumin 4.1 (3.5-5.0) g/dL Globulin 3.8 (1.7-4.1) g/dL Albumin/Globulin Ratio 1.1 (1.0-2.8) Urine Color Yellow Urine Appearance Sl cloudy Urine pH 6.5 (4.5-8.0) Ur Specific [place] 1.010 (1.000-1.035) Urine Protein Trace H (Negative) Urine Glucose (UA) Negative (Negative) g/dL Urine Ketones Negative (NEGATIVE) Urine Occult Blood 3+ H (Negative) Urine Nitrate Negative (Negative) Urine Bilirubin Negative (NEGATIVE) Urine Urobilinogen 0.2 (0.2) E.U./dL Ur Leukocyte Esterase 3+ H (NEGATIVE) Urine RBC 1-5/hpf (0-5/HPF) Urine WBC 10-30/hpf H (0-5/HPF) Ur Squamous Epith Cells 0-1 /hpf D (0-5/HPF) Urine Bacteria Few (2-10) H (None) Urine Mucus 1+ H (Negative) Ur Culture Indicated? Specimen cultured Vol Urine Centrifuged 10ml (spun) ECG Data Attestation: I personally reviewed and interpreted this ECG as follows: Interpretation: Patient's EKG shows normal sinus rhythm with a rate of 104, MD interval within normal limits, QTC 428, no significant ST elevations or depressions no S1 Q 3 T3 no significant abnormalities on this EKG no signs of ischemia meeting STEMI criteria no previous for comparison MDM Narrative Medical decision making narrative: INITIAL EVALUATION AND PLAN: - Administer Tylenol for headache and pain management. - Perform lab work to screen for preeclampsia, abnormal platelets, liver enzymes, and urinalysis. - Consider ultrasound to evaluate ovaries if symptoms persist. - Monitor for potential dural sinus thrombosis if symptoms worsen. Considered a head CT however through shared decision-making have decided not to obtain scan at this time. - Follow up with OB for further evaluation and management. - Discuss with patient the possibility of further imaging if symptoms do not improve. Differential diagnosis includes but is not limited to: Preeclampsia, eclampsia, dural sinus thrombosis, headache, normal complications, DVT, ovarian pathology -patient has had blood pressures less than 140 throughout her time in the emergency department, she has mild headache that she rates 2/10 with no neurological deficits lower suspicion for intracranial hemorrhage dural sinus thrombosis especially given patient is currently on anticoagulation, offered CT however through shared decision-making have decided against it at this time. Patient's symptoms mildly improved with Tylenol. Patient's lab work as discussed above or reassuring no LFT abnormalities no platelet abnormalities doubt HELLP syndrome urine shows signs of infection but no significant protein in the urine. Patient has already had CT of the abdomen and pelvis that shows no abnormalities and has already had a lower extremity ultrasound that shows no abnormalities. Do not believe repeat imaging at this time is necessary. Patient will follow up with OB in the morning for ongoing workup of her symptoms. -no chest pain no shortness of breath doubt patient has pulmonary embolism given she has no symptoms of a pulmonary embolism and is currently on anticoagulation. -no significant abdominal pain on evaluation no rebound tenderness no signs of peritonitis, patient has had no ongoing vaginal bleeding or vaginal discharge. She has had no fevers no chills doubt retained product of conception, doubt ongoing bleeding. Lower suspicion for ovarian torsion given her pain is higher up in the abdomen and her symptoms have been somewhat constant over the course of several days which is not very consistent with ovarian torsion. Discharge Plan Departure Patient Disposition: Home Clinical Impression: Swelling, UTI (urinary tract infection) Instructions: DI for Urinary Tract Infection (UTI), DI for -- Discomforts and Remedies Activity Restrictions/Additional Instructions: Today your laboratory evaluation was reassuring with no problems with her LFTs your platelets you were found to have a urinary tract infection which we will begin to treat. Please follow-up with your OBGYN for ongoing workup for your various symptoms. He recently had a negative CT scan negative DVT scan of the right lower extremity. We talked about a CT of the head however deferred at this time. If you have worsening symptoms please return to have this done however. Prescriptions: New cephalexin 500 mg capsule 500 mg PO BID 7 Days Qty: 14 0RF No Action enoxaparin 40 mg/0.4 mL syringe 40 mg SUBCUT DAILY Qty: 4 3RF vit-ferrous sulfat-FA 27 mg iron- 0.8 mg tablet PO cholecalciferol (vitamin D3) 125 mcg (5,000 unit) capsule 125 mcg PO DAILY zinc gluconate 30 mg tablet 30 mg PO DAILY heparin (porcine) 10,000 unit/mL solution 10,000 unit SUBCUT Q12H Qty: 25 1RF (DME) BD SafetyGlide Insulin Syringe 1 mL 31 gauge x 15/64 syringe See Rx Instructions .Route Qty: 100 0RF Rx Instructions: As directed (DME) alcohol swabs Pads, Medicated See Rx Instructions .Route Qty: 100 0RF Rx Instructions: As directed Referrals: ProviderHarsha [Primary Care Provider] - Stand Alone Forms: Patient Portal/API/Survey
[2024-10-29] MEDS: ACETAMINOPHEN 325 MG TABLET 650 MG PO (22:02)
--- NOTE | 2024-10-29 22:08 | EKG_ITS ---
[address] [address] Test Date: 2024-10-29 Pat Name: Himanshu Carlos Department: [facility] Room: Gender: Female [employer]: LIVE : 1995 Requested By: Order Number: [id number] Reading MD: Maxwell Reilly MD Measurements Intervals [place] Rate: 104 P: 32 MA: 148 QRS: 33 QRSD: 74 T: 13 QT: 326 QTc: 428 Interpretive Statements Sinus tachycardia Electronically Signed On 10-30-2024 6:43:34 PDT by Maxwell Reilly MD
[2024-10-29 22:22] LABS: NT-proBNP (BNP-Adult 18+) 238 pg/mL (<125)
--- NOTE | 2024-10-30 18:04 | PC.NURSE ---
Pt requested that prescription be sent to [facility]. Attempted to electronically send to [facility] which failed. On hold x 2 for total of 1.5 hours. Unsure what delay is. Called pt back and let her know we could not send to [facility]. Asked that she call back with alternative.
== END 2024-10-29 23:53 | disposition home or self-care (01) ==
PROVIDERS: Emergency Provider Emergency Medicine
DX: O90.89 Other complications of the puerperium, not elsewhere classified (principal); M79.89 Other specified soft tissue disorders; N39.0 Urinary tract infection, site not specified; R51.9 Headache, unspecified; R20.0 Anesthesia of skin; H53.8 Other visual disturbances; M79.604 Pain in right leg; Z86.718 Personal history of other venous thrombosis and embolism
CPT/HCPCS: 80053; 81001; 83735; 83880; 85025; 87086; 93005; 93010; 93971; 99283; 99284

== ENCOUNTER → 2024-11-05 13:55 | Outpatient (CLI) | payer OTHER, SELFPAY ==
[2024-11-05 15:00] LABS: Add Manual Diff / Slide Review NO; Basophils Absolute Auto 0 /uL (0-100); Basophils Percent Auto 0.3 % (0-2); Eosinophils Absolute Auto 500 /uL (0-450); Eosinophils Percent Auto 5.7 % (2-4); Hematocrit 36.3 % (36-46); Hemoglobin 12.4 g/dL (12.0-16.0); Lymphocytes Absolute Auto 3400 /uL (1100-4500); Lymphocytes Percent Auto 37.6 % (25-40); Mean Corpuscular HGB Conc 34.1 % (30-36); Mean Corpuscular Hemoglobin 28.2 PG (26-34); Mean Corpuscular Volume 82.9 fL (80-100); Monocytes Absolute Auto 400 /uL (0-900); Monocytes Percent Auto 4.8 % (3-14); Neutrophils Absolute Auto 4600 /uL (1500-7000); Neutrophils Percent Auto 51.6 % (50-75); Platelet Count 366 X10^3/uL (150-400); Red Blood Cell Count 4.37 X10^6/uL (4.0-5.2); Red Cell Distribution Width 14.5 % (11.6-14.8)
[2024-11-05 15:42] LABS: Free T4, Direct Thyroxine 1.37 ng/dL (0.78-2.19)
[2024-11-05 15:56] LABS: Thyroid Stimulating Hormone 0.824 uIU/mL (0.47-4.68)
== END ==
PROVIDERS: Referring Provider Obstetrics & Gynecology; Visit Provider Obstetrics & Gynecology
DX: R00.2 Palpitations (principal)
CPT/HCPCS: 36415; 84439; 84443; 85025